=== PATIENT | male | born 1990 | race Caucasian/White ===

== ENCOUNTER 2021-03-05 14:05 | Outpatient (CLI) | payer BC ==
[~2021-03-05] VITALS: Ht 165.1 cm; Wt 97.7 kg
[2021-03-05 14:30] VITALS: BP 144/79; PULSE 68; TEMP 98.9
[2021-03-05 15:01] VITALS: BP 133/75; PULSE 68
[2021-03-05] MEDS ORDERED: TYLENOL 500MG500 MG PO (15:03)
[2021-03-05 15:15] VITALS: BP 132/76; PULSE 63
[2021-03-05 15:45] VITALS: BP 141/63; PULSE 70
== END 2021-03-05 16:41 ==
LOC: EUO 14:05
DX: U07.1 COVID-19 (principal); E66.9 Obesity, unspecified
CPT/HCPCS: M0243; Q0244